=== PATIENT | male | born 1955 | race Caucasian/White ===

== ENCOUNTER 2019-07-23 10:23 | Day surgery (SDC) | payer MEDICARE ==
[~2019-07-23 10:23] MED LIST: ALBU90OI INH; ALBUIS INH; Antivert25 MG PO; CEPH500 PO; FLUSAL5005 INH; GABA300 PO; GABA600 PO; HYDACE5 PO; LISI5 PO; MELO7.5 PO; MONT10T PO; MORP15ER PO; MS Contin15 MG PO; OXYC1TAB11; Prednisone20 MG PO; TAMS.4ER PO; TIOT18 INH; TUDORZA PRESS400 MCG INH
--- NOTE | 2019-07-23 13:24 | NUR ---
ASSUMED CARE OF PT FOR RN (SUZI). PT IS DOING WELL WANTING TO GO EARLY. RN CALLED BROOKS IN RADIOLOGY SHE STATED PT CAN GO HOME. VSS. BANDAIND TO LOWER BACK ON [facility]. Discharge instructions reviewed with patient. Patient verbalizes understanding. Copy given to patient to take home. PT HAS NO QUESTIONS OR CONCERNS. Patient States Post-Procedure ride home has been arranged. PT WALKED OUT BROTHER IS PT RIDE HOME.
== END 2019-07-23 23:16 | disposition home or self-care (01) ==
LOC: RAD 10:23
DX: M50.11 Cervical disc disorder with radiculopathy, high cervical region (principal); M48.02 Spinal stenosis, cervical region; M43.12 Spondylolisthesis, cervical region; M65.232 Calcific tendinitis, left forearm; M96.1 Postlaminectomy syndrome, not elsewhere classified; Z98.1 Arthrodesis status
CPT/HCPCS: 62302; 72126; Q9966

== ENCOUNTER → 2019-10-01 | Outpatient (CLI) | payer MEDICARE ==
[2019-10-01 20:09] LABS: Anion Gap 6 mmol/L (6-16); Blood Urea Nitrogen 8 mg/dL (8-24); Bun/Creatinine Ratio 9.5 (12.0-20.0); CO2, Blood 28 mmol/L (21-32); Calcium, Blood 8.8 mg/dL (8.5-10.1); Chloride, Blood 103 mmol/L (98-108); Creatinine, Blood 0.84 mg/dL (0.60-1.20); Glomerular Filtration Rate >60 (60-); Glucose, Blood 113 mg/dL (70-99); Potassium, Blood 3.7 mmol/L (3.5-5.5); Sodium, Blood 137 mmol/L (136-145)
== END | disposition home or self-care (01) ==
LOC: LAB 19:22 → LAB SHORT 19:22
PROVIDERS: Physician Assistant
DX: E87.1 Hypo-osmolality and hyponatremia (principal)
CPT/HCPCS: 36415; 80048

== ENCOUNTER 2020-02-08 10:54 | Inpatient (IN) | payer OTHER ==
[~2020-02-08] VITALS: Ht 172.7 cm; Wt 68.0 kg
[~2020-02-08 10:54] MED LIST changes: -FLUSAL5005 INH; -MONT10T PO; -OXYC1TAB11
[2020-02-08 11:27] LABS: BASOPHILS ABSOLUTE AUTO 0.06 K/mm3 (0.00-0.23); BASOPHILS PERCENT AUTO 0 % (0-2); EOSINOPHILS ABSOLUTE AUTO 0.01 K/mm3 (0.00-0.68); EOSINOPHILS PERCENT AUTO 0 % (0-6); Hematocrit 47.4 % (37.0-53.0); Hemoglobin 15.8 g/dL (13.5-17.5); IMMATURE GRAN ABSOLUTE AUTO 0.42 K/mm3 (0.00-0.10); IMMATURE GRAN PERCENT AUTO 2 % (0-1); LYMPHOCYTES PERCENT AUTO 3 % (21-46); MONOCYTES ABSOLUTE AUTO 1.78 K/mm3 (0.16-1.47); MONOCYTES PERCENT AUTO 8 % (4-13); Mean Corpuscular HGB 29.7 pg (26.0-34.0); Mean Corpuscular HGB Conc 33.3 g/dL (31.5-36.5); Mean Corpuscular Volume 89 fL (80-100); Mean Platelet Volume 9.7 fL (9.1-12.4); NEUTROPHILS ABSOLUTE AUTO 18.14 K/mm3 (1.96-9.15); NEUTROPHILS PERCENT AUTO 86 % (41-73); Platelet Count 194 K/mm3 (150-400); RDW Coefficient Variation 13.6 % (11.7-14.2); RDW Standard Deviation 44.1 fL (35.1-46.3); Red Blood Cell Count 5.32 M/mm3 (4.30-5.90); White Blood Cell Count 21.11 K/mm3 (4.00-11.30)
[2020-02-08 11:42] LABS: Alanine Aminotransfer (ALT/SGP 17 U/L (12-78); Albumin, Blood 3.5 g/dL (3.4-5.0); Albumin/Globulin Ratio 0.9 (0.8-1.8); Alk Phos 81 U/L (50-136); Anion Gap 8 mmol/L (6-16); Aspartate Aminotrans (AST/SGOT 18 U/L (12-37); Bilirubin, Total 2.1 mg/dL (0.1-1.0); Blood Urea Nitrogen 16 mg/dL (8-24); Bun/Creatinine Ratio 18.1 (12.0-20.0); CO2, Blood 27 mmol/L (21-32); Chloride, Blood 99 mmol/L (98-108); Creatinine, Blood 0.89 mg/dL (0.60-1.20); Glomerular Filtration Rate >60 (60-); Glucose, Blood 103 mg/dL (70-99); Potassium, Blood 3.8 mmol/L (3.5-5.5); Sodium, Blood 134 mmol/L (136-145); Total Protein, Blood 7.5 g/dL (6.4-8.2); Troponin I <0.015 ng/mL (0.000-0.040)
[2020-02-08] MEDS ORDERED: MONT10T PO (13:42)
[2020-02-08] MEDS ORDERED: FLUT1DIS2 INH (13:42)
[2020-02-08] MEDS ORDERED: Ventolin/Prove6.7 GM INH (13:43)
[2020-02-08] MEDS ORDERED: Hydrocodone-Ap1 EA20 PO (13:44)
[2020-02-08 16:20] LABS: Adenovirus Not Detected (NOT DETECT); Bordetella pertussis Not Detected (NOT DETECT); Chlamydophila pneumoniae Not Detected (NOT DETECT); Coronavirus 229E Not Detected (NOT DETECT); Coronavirus HKU1 Not Detected (NOT DETECT); Coronavirus NL63 Not Detected (NOT DETECT); Coronavirus OC43 Not Detected (NOT DETECT); Human Metapneumovirus Not Detected (NOT DETECT); Human Rhinovirus/Enterovirus Not Detected (NOT DETECT); Influenza A/2009-H1 Not Detected (NOT DETECT); Influenza A/H1 Not Detected (NOT DETECT); Influenza A/H3 Not Detected (NOT DETECT); Influenza B Not Detected (NOT DETECT); Mycoplasma pneumoniae Not Detected (NOT DETECT); Parainfluenza Virus 1 Not Detected (NOT DETECT); Parainfluenza Virus 2 Not Detected (NOT DETECT); Parainfluenza Virus 3 Not Detected (NOT DETECT); Parainfluenza Virus 4 Not Detected (NOT DETECT); Respiratory Syncytial Virus Not Detected (NOT DETECT)
--- NOTE | 2020-02-08 18:31 | NUR ---
SHIFT SUMMARY PT A&OX4, VSS, DENIES FEVER, SOB, CP, PTAEL. EDU PT TO TCDB. REPORTS SLIGHT NAUSEA, REFUSES NAUSEA MEDICATION. PAIN MANAGED PER CHRONIC SCHEDULE OF 5 MG NORCO. URINAL AT BEDSIDE. CALL LIGHT EDU PROVIDED. WILL REPORT TO WINNIE LOPEZ RN.
--- NOTE | 2020-02-08 20:47 | NUR ---
URINE SPECIMEN OBTAINED AND SENT PER PREVIOUS ER ORDER, RESULTS PENDING.
[2020-02-08 20:51] LABS: Source, Urine Clean Catch
[2020-02-08 20:54] LABS: Bilirubin, Urine Neg (Neg); Blood, Urine 2+ (Neg); Glucose Qualitative, Urine Neg (Neg); Ketones, Urine 1+ (Neg); Leukocyte Esterase, Urine 1+ (Neg); Nitrite, Urine Neg (Neg); Protein, Urine 2+ (Neg); Urobilinogen, Urine NORM (Normal)
[2020-02-08 21:02] LABS: Appearance, Urine Clear (Clear); Bacteria Mod /hpf; Color, Urine Amber (P-Yellow); Hyaline Casts 0-2 /lpf (0-2); Mucus Light (0-Heavy); Red Blood Cells, Urine 0-2 /hpf (0-2); Squamous Epithelial Cells Few /hpf (Few)
--- NOTE | 2020-02-09 03:41 | NUR ---
SUMMARY: A/OX4, INDEPENDENT IN ROOM AND CALLS APPROPRIATELY FOR ASSISTANCE. HE REMAINS IN ISO FOR R/O COVID. HE'S BEEN W/O S/S RESP DISTRESS AND NO COUGH OBSERVED THIS SHIFT. RESPS E/U ON 1.5L O2 AND LS CLEAR, DIM IN BASES. RT PROVIDED BX TX'S PER EMAR. ORAL ZITHROMAX AND IV ROCEPHIN BEING RECEIVED FOR PNM. HE REPORTS CHRONIC BACK PAIN AND PATEL W/NORCO PROVIDED PRN FOR GOOD EFFECT. URINE SPECIMEN OBTAINED AND SENT, CX PENDING. PT DENIES FEVER/CHILLS AND ALL OTHER COMPLAINTS THIS SHIFT. VSS/AFEBRILE. WCTM AND REPORT TO DAY RN.
[2020-02-09 05:08] LABS: BASOPHILS ABSOLUTE AUTO 0.05 K/mm3 (0.00-0.23); BASOPHILS PERCENT AUTO 0 % (0-2); EOSINOPHILS ABSOLUTE AUTO 0.15 K/mm3 (0.00-0.68); EOSINOPHILS PERCENT AUTO 1 % (0-6); Hematocrit 38.6 % (37.0-53.0); IMMATURE GRAN ABSOLUTE AUTO 0.15 K/mm3 (0.00-0.10); IMMATURE GRAN PERCENT AUTO 1 % (0-1); LYMPHOCYTES ABSOLUTE AUTO 1.22 K/mm3 (0.84-5.20); LYMPHOCYTES PERCENT AUTO 9 % (21-46); MONOCYTES ABSOLUTE AUTO 1.01 K/mm3 (0.16-1.47); MONOCYTES PERCENT AUTO 7 % (4-13); Mean Corpuscular HGB 29.8 pg (26.0-34.0); Mean Corpuscular HGB Conc 33.7 g/dL (31.5-36.5); Mean Corpuscular Volume 89 fL (80-100); NEUTROPHILS ABSOLUTE AUTO 11.09 K/mm3 (1.96-9.15); NEUTROPHILS PERCENT AUTO 81 % (41-73); Platelet Count 180 K/mm3 (150-400); RDW Coefficient Variation 13.5 % (11.7-14.2); RDW Standard Deviation 43.9 fL (35.1-46.3); Red Blood Cell Count 4.36 M/mm3 (4.30-5.90); White Blood Cell Count 13.67 K/mm3 (4.00-11.30)
[2020-02-09 05:36] LABS: Anion Gap 7 mmol/L (6-16); Blood Urea Nitrogen 18 mg/dL (8-24); Bun/Creatinine Ratio 20.8 (12.0-20.0); CO2, Blood 30 mmol/L (21-32); Calcium, Blood 8.7 mg/dL (8.5-10.1); Chloride, Blood 99 mmol/L (98-108); Creatinine, Blood 0.87 mg/dL (0.60-1.20); Glomerular Filtration Rate >60 (60-); Glucose, Blood 97 mg/dL (70-99); Potassium, Blood 3.7 mmol/L (3.5-5.5); Sodium, Blood 136 mmol/L (136-145)
--- NOTE | 2020-02-09 12:40 | NUR ---
SPOKE WITH DAUGHTER WITH THE PT'S PERMISSION I SPOKE WITH HIS DAUGHTER ON THE PHONE SANTANA ARRIOLA [phone] SHE WOULD LIKE TO BE NOTIFIED OF ANY CHANGES AND WHEN HE IS DISCHARGED
--- NOTE | 2020-02-09 17:21 | NUR ---
SUMMARY PT SITTING UP IN BED WATCHING TV, PT HAS BEEN INDEPENDENT IN THE ROOM, IS PLEASANT AND COOPERATIVE WITH CARE, ON 2L NC MOST OF THE TIME, PT OCC TAKES IT OFF, DENIES ANY SOB AT THIS TIME, VSS, NO ACUTE CHANGES, WILL CONTINUE TO MONITOR
[2020-02-10 05:07] LABS: BASOPHILS ABSOLUTE AUTO 0.03 K/mm3 (0.00-0.23); BASOPHILS PERCENT AUTO 0 % (0-2); EOSINOPHILS ABSOLUTE AUTO 0.14 K/mm3 (0.00-0.68); EOSINOPHILS PERCENT AUTO 1 % (0-6); Hematocrit 38.7 % (37.0-53.0); IMMATURE GRAN ABSOLUTE AUTO 0.07 K/mm3 (0.00-0.10); IMMATURE GRAN PERCENT AUTO 1 % (0-1); LYMPHOCYTES ABSOLUTE AUTO 0.91 K/mm3 (0.84-5.20); LYMPHOCYTES PERCENT AUTO 9 % (21-46); MONOCYTES ABSOLUTE AUTO 0.81 K/mm3 (0.16-1.47); MONOCYTES PERCENT AUTO 8 % (4-13); Mean Corpuscular HGB 30.1 pg (26.0-34.0); Mean Corpuscular HGB Conc 33.6 g/dL (31.5-36.5); Mean Corpuscular Volume 90 fL (80-100); Mean Platelet Volume 10.3 fL (9.1-12.4); NEUTROPHILS ABSOLUTE AUTO 7.83 K/mm3 (1.96-9.15); NEUTROPHILS PERCENT AUTO 80 % (41-73); Platelet Count 207 K/mm3 (150-400); RDW Coefficient Variation 13.4 % (11.7-14.2); RDW Standard Deviation 44.6 fL (35.1-46.3); Red Blood Cell Count 4.32 M/mm3 (4.30-5.90); White Blood Cell Count 9.79 K/mm3 (4.00-11.30)
--- NOTE | 2020-02-10 06:03 | NUR ---
SUMMARY: A/OX4, INDEPENDENT IN ROOM AND SPECIFIES NEEDS. HE DENIES SOB OR DYSPNEA AND TOLERATED RA MOST OF NOCTE BUT PLACED SELF ON 1-2L O2 AD KAREN FOR COMFORT. LS ARE CLEAR AND DIM IN BASES W/RESPS E/U. HE OCCASIONALLY HAS A MOIST PRODUCTIVE COUGH W/LINDA SPUTUM OBSERVED. HE REMAINS IN ISO FOR R/O COVID W/RESULTS PENDING. NORCO WAS RECEIVED PRN FOR TOLERABLE CONTROL OF CHRONIC L.ARM AND BACK PAIN BUT PT ALSO REPORTS NAGGING PATEL. HE REMAINS IN ISO FOR R/O COVID W/RESULTS PENDING. NO ACUTE CHANGES, VSS/AFEBRILE. WCTM AND REPORT TO DAY RN.
[2020-02-10] MEDS ORDERED: DULO60 PO (09:47)
[2020-02-10] MEDS ORDERED: TAMS.4ER PO (09:48)
[2020-02-10] MEDS ORDERED: FINA5 PO (09:48)
--- NOTE | 2020-02-10 18:12 | NUR ---
SHIFT SUMMARY PATIENT TOLERATING ROOM AIR, BIBASILAR LUNG SOUNDS DIMINISHED, REPORTS SLIGHT BLANCHARD. SHOWERED TODAY. REMAINS IN ISOLATION FOR R/O COVID-19. TOLERATING ALL MEALS. MEDICATED WITH NORCO PRN FOR CHRONIC PAIN IN BACK AND LEFT ARM. UPDATED DR. GONZALEZ TODAY WITH THE PATIENT'S STATUS.
[2020-02-11 05:10] LABS: BASOPHILS ABSOLUTE AUTO 0.06 K/mm3 (0.00-0.23); BASOPHILS PERCENT AUTO 1 % (0-2); EOSINOPHILS ABSOLUTE AUTO 0.29 K/mm3 (0.00-0.68); EOSINOPHILS PERCENT AUTO 3 % (0-6); Hemoglobin 14.9 g/dL (13.5-17.5); IMMATURE GRAN ABSOLUTE AUTO 0.09 K/mm3 (0.00-0.10); IMMATURE GRAN PERCENT AUTO 1 % (0-1); LYMPHOCYTES ABSOLUTE AUTO 1.66 K/mm3 (0.84-5.20); LYMPHOCYTES PERCENT AUTO 15 % (21-46); MONOCYTES ABSOLUTE AUTO 1.74 K/mm3 (0.16-1.47); MONOCYTES PERCENT AUTO 16 % (4-13); Mean Corpuscular HGB 29.6 pg (26.0-34.0); Mean Corpuscular HGB Conc 33.1 g/dL (31.5-36.5); Mean Corpuscular Volume 90 fL (80-100); Mean Platelet Volume 10.6 fL (9.1-12.4); NEUTROPHILS ABSOLUTE AUTO 7.39 K/mm3 (1.96-9.15); NEUTROPHILS PERCENT AUTO 66 % (41-73); Platelet Count 180 K/mm3 (150-400); RDW Coefficient Variation 13.7 % (11.7-14.2); RDW Standard Deviation 45.2 fL (35.1-46.3); Red Blood Cell Count 5.03 M/mm3 (4.30-5.90); White Blood Cell Count 11.23 K/mm3 (4.00-11.30)
--- NOTE | 2020-02-11 06:20 | NUR ---
SHIFT SUMMARY PATIENT ALERT AND ORIENTED. IV IN LEFT AC REMOVED DUE TO IT LEAKING. 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 MOISÉS YANEZ RN INSERTED A NEW IV INTO HIS RIGHT FOREARM AFTER THIS NURSE WAS UNSUCCESSFUL AFTER TWO ATTEMPTS AT INSERTING A NEW IV. BED IN LOWEST POSITION WITH WHEELS LOCKED. CALL LIGHT WITHIN REACH. REPORT GIVEN TO ONCAZUCENA RN.
[2020-02-11] MEDS ORDERED: CIPR500 PO (11:38)
[2020-02-11] MEDS ORDERED: GUAI600T33 PO (11:38)
[2020-02-11] MEDS ORDERED: Vsl#3 Capsule1 EACH PO (11:39)
--- NOTE | 2020-02-11 12:27 | NUR ---
DISCHARGE SUMMARY- PT ALERT, ORIENTED AND INDEPENDENT. PT WAS GIVEN VERBAL AND WRITTEN DISCHARGE INSTRUCTIONS AND ACKNOWLEDGED UNDERSTANDING OF THEM. PT DAUGHTER WAS CONTACTED AND UPDATED PER PT REQUEST. IV DC'D PRIOR TO DISCHARGE. PT MEDS FAXED TO [facility] PER HIS REQUEST; CALLED TO VERIFY RECIEPT OF FAX PER PT DAUGHTER REQUEST, THEY HAVE THE ORDERS AND ARE "WORKING ON THEM NEXT". PT WAS ESCORTED OUT VIA WC BY THE RN MASK IN PLACE. NO S&S OF DISTRESS AT THE TIME OF DISCHARGE.
== END 2020-02-11 12:10 | disposition home or self-care (01) | DRG 179 ==
LOC: ER 10:54 → MEDS 16:18
PROVIDERS: Emergency Medicine; Internal Medicine; ADMIT Internal Medicine
DX: J15.212 Pneumonia due to Methicillin resistant Staphylococcus aureus (principal); R09.02 Hypoxemia; J44.9 Chronic obstructive pulmonary disease, unspecified; F32.9 Major depressive disorder, single episode, unspecified; G40.909 Epilepsy, unspecified, not intractable, without status epilepticus; G62.9 Polyneuropathy, unspecified; I10 Essential (primary) hypertension; Z87.891 Personal history of nicotine dependence; R91.1 Solitary pulmonary nodule; M54.9 Dorsalgia, unspecified; N40.0 Benign prostatic hyperplasia without lower urinary tract symptoms; G89.29 Other chronic pain; G25.81 Restless legs syndrome
CPT/HCPCS: 0099U; 36415; 71045; 71250; 80048; 80053; 81001; 83605; 84145; 84484; 85025; 87040; 87070; 87077; 87086; 87186; 87205; 93005; 93010; 94640; 94760; 96365; 99285-25; A9270-GY; J0696; J0744; J1650; J7050; U0002

== ENCOUNTER 2020-02-14 00:44 | Inpatient (IN) | payer OTHER ==
[~2020-02-14] VITALS: Ht 172.7 cm; Wt 68.0 kg
[~2020-02-14 00:44] MED LIST changes: +CIPR500 PO; +DULO60 PO; +FINA5 PO; +FLUT1DIS2 INH; +GUAI600T33 PO; +Hydrocodone-Ap1 EA20 PO; +MONT10T PO; +Ventolin/Prove6.7 GM INH; +Vsl#3 Capsule1 EACH PO
[2020-02-14 01:23] LABS: BASOPHILS ABSOLUTE AUTO 0.07 K/mm3 (0.00-0.23); BASOPHILS PERCENT AUTO 1 % (0-2); EOSINOPHILS ABSOLUTE AUTO 0.28 K/mm3 (0.00-0.68); EOSINOPHILS PERCENT AUTO 3 % (0-6); Hematocrit 43.5 % (37.0-53.0); Hemoglobin 14.7 g/dL (13.5-17.5); IMMATURE GRAN ABSOLUTE AUTO 0.35 K/mm3 (0.00-0.10); IMMATURE GRAN PERCENT AUTO 3 % (0-1); LYMPHOCYTES ABSOLUTE AUTO 0.93 K/mm3 (0.84-5.20); LYMPHOCYTES PERCENT AUTO 9 % (21-46); MONOCYTES ABSOLUTE AUTO 1.16 K/mm3 (0.16-1.47); MONOCYTES PERCENT AUTO 11 % (4-13); Mean Corpuscular HGB 30.1 pg (26.0-34.0); Mean Corpuscular HGB Conc 33.8 g/dL (31.5-36.5); Mean Corpuscular Volume 89 fL (80-100); Mean Platelet Volume 9.7 fL (9.1-12.4); NEUTROPHILS ABSOLUTE AUTO 8.19 K/mm3 (1.96-9.15); NEUTROPHILS PERCENT AUTO 75 % (41-73); Platelet Count 383 K/mm3 (150-400); RDW Standard Deviation 42.6 fL (35.1-46.3); Red Blood Cell Count 4.89 M/mm3 (4.30-5.90); White Blood Cell Count 10.98 K/mm3 (4.00-11.30)
[2020-02-14 01:41] LABS: Alanine Aminotransfer (ALT/SGP 48 U/L (12-78); Albumin, Blood 3.2 g/dL (3.4-5.0); Albumin/Globulin Ratio 0.7 (0.8-1.8); Alk Phos 78 U/L (50-136); Anion Gap 7 mmol/L (6-16); Aspartate Aminotrans (AST/SGOT 36 U/L (12-37); Bilirubin, Total 0.5 mg/dL (0.1-1.0); Blood Urea Nitrogen 7 mg/dL (8-24); Bun/Creatinine Ratio 9.4 (12.0-20.0); CO2, Blood 30 mmol/L (21-32); Calcium, Blood 9.2 mg/dL (8.5-10.1); Chloride, Blood 96 mmol/L (98-108); Creatinine, Blood 0.75 mg/dL (0.60-1.20); Globulin, Blood 4.5 g/dL (2.2-4.0); Glomerular Filtration Rate >60 (60-); Glucose, Blood 109 mg/dL (70-99); Potassium, Blood 3.7 mmol/L (3.5-5.5); Sodium, Blood 133 mmol/L (136-145); Total Protein, Blood 7.7 g/dL (6.4-8.2); Troponin I <0.015 ng/mL (0.000-0.040)
--- NOTE | 2020-02-14 04:53 | NUR ---
ADMISSION: PATIENT IS A&OX4, RECIEVED FROM ER VIA STRETCHER. PATIENT IS PAINFULL IN RIGHT CHEST. BP IS ELEVATED 02 STAT IS 93% ON 3L. TORADAL IS GIVEN FOR PAIN, TELEMETRY IS PLACED, NSR RATE OF 78. PATIENT IS ORIENTED TO ROOM AND CALL PINK. INSTRUCATED CALL FOR ASSIST OOB TO PREVENT FALLS. PATIENT IS IN DROPPLET PRECAUTIONS FOR MRSA IN THE SPUTUM.
--- NOTE | 2020-02-14 07:38 | NUR ---
SHIFT SUMMARY: PATIENT HAS GOOD EFFECT FROM TORADOL AND IS MUCH MORE RELAXED. TELEMETRY SHOWS NSR WITH RATE OF 78 02 IS AT 3L NC. PATIENT IS INSTRUCTED TO CALL FOR ASSISTANCE OOB TH FIRST TIME. PATIENT IS DUE TO VOID.
--- NOTE | 2020-02-14 12:05 | NUR ---
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 H/R REG, NO MURMER NOTED. IS DISTANT. PER TELE NSR AT 67. LUNGS CLEAR, EXCEPT LOW RIGHT HAS LIGHT CRACKLES. ON 3L O2. RESP EASY, UNLABORED. SOB WITH EXERTION TO BATHROOM. BT X4 LAST BMYEST. VOIDS URINAL AND ABOVE, SOB TO BATHROOM. SBA. BED IN LOW POSITION, CALL LITE IN [facility], CALLS APPROP
--- NOTE | 2020-02-14 17:39 | NUR ---
PT PLEASANT TODAY. DID MAKE IT TO BATHROOM WITH SOME RESTING. PT STATES OVERALL IMPROVE MEMT. CONTINUE TO MONITOR. BED IN LOW POSITION, CALL LITE IN REACH, CALLS APPROP
[2020-02-15 05:28] LABS: Hematocrit 38.1 % (37.0-53.0); Hemoglobin 12.8 g/dL (13.5-17.5); Mean Corpuscular HGB 29.6 pg (26.0-34.0); Mean Corpuscular HGB Conc 33.6 g/dL (31.5-36.5); Mean Corpuscular Volume 88 fL (80-100); Mean Platelet Volume 9.7 fL (9.1-12.4); Platelet Count 404 K/mm3 (150-400); RDW Coefficient Variation 12.8 % (11.7-14.2); RDW Standard Deviation 41.4 fL (35.1-46.3); Red Blood Cell Count 4.32 M/mm3 (4.30-5.90); White Blood Cell Count 9.42 K/mm3 (4.00-11.30)
[2020-02-15 06:03] LABS: Anion Gap 7 mmol/L (6-16); Blood Urea Nitrogen 14 mg/dL (8-24); Bun/Creatinine Ratio 19.5 (12.0-20.0); CO2, Blood 28 mmol/L (21-32); Calcium, Blood 8.9 mg/dL (8.5-10.1); Chloride, Blood 98 mmol/L (98-108); Creatinine, Blood 0.72 mg/dL (0.60-1.20); Glomerular Filtration Rate >60 (60-); Glucose, Blood 115 mg/dL (70-99); Potassium, Blood 4.4 mmol/L (3.5-5.5); Sodium, Blood 133 mmol/L (136-145)
--- NOTE | 2020-02-15 07:19 | NUR ---
SHIFT SUMMARY: PATIENT IS A&OX4, SOB WITH ACTIVITY, 88% ON RA AND 93% ON 3L. RECENTLY QUIT SMOKING THIS PASSED WEEK DUE TO PNA. PAIN IN R CHEST HAS IMPROVED, CHRONIC BACK PAIN IS MAIN SOURCE OF PAIN AT THIS TIME. NORCO IS GIVEN WITH GOOD EFFECT. PATIENT REMAINS IN DROPLET/CONTACT ISOLSTION FOR MRSA IN THE SPUTUM.
--- NOTE | 2020-02-15 07:59 | NUR ---
RECEIVED REPORT FROM NOC NURSE, A+O, BED in low position, o2 via 3L via nc, iv infusing abx, call light in reach, ls dim, perrl, strong pulse, cattle care worker and profusion, full rom all limbs, bt+4q, soft nontender, will continue to monitor and treat
[2020-02-15 17:48] LABS: Vancomycin, Trough 16.1 ug/mL (5.0-10.0)
--- NOTE | 2020-02-15 18:42 | NUR ---
a+o, still concerned about area in lung as seen on xray, encouraged him to discuss it with mario ruffin infusing with no s/sx of infiltration or infection, adjusting to new swallow percautions, will continue to monitor and treat until share bsr with noc shift
--- NOTE | 2020-02-16 07:19 | NUR ---
02/16/20 0600 SLEPT ON AND OFF. MEDICATED FOR CHRONIC BACK,CHEST AND LT. ARM DISCOMFORT. VITLAS STABLE. VOIDING WELL. O2 AT 3LPM VIA N/C LAST NIGHT. UNEVENTFUL NIGHT.
--- NOTE | 2020-02-16 17:00 | NUR ---
PT IS AOX4 AND COOPERATIVE OF CARE. PT IS A STAND BY ASSIST TO RESTROOM, BUT USES URINAL MOST OF THE TIME. DR HAS REQUESTED PT BE TITRATED DOWN WITH O2. PT IS ON 2 L AT THIS TIME LOW 90s. PT CALL APPROPRIATELY WILL CONTINUE TO MONITOR.
--- NOTE | 2020-02-17 04:38 | NUR ---
SHIFT SUMMARY PATIENT HAD NO ACUTE CHANGES OBSERVED. AXO X3 AND SBA TO BR. DENIES SOB AND NV. REPORTED BACK PAIN AND NORCO GIVEN PER EMAR. USES URINAL AT BEDSIDE. TAKES MEDICATION X ONE EACH WITH APPLE SAUCE. PIV REMAINS INTACT. HIGH VOLTAGE ELECTRICIAN REPORTS NSR 70. ON 2L O2 NC. IV ABXS INFUSED. CALL LIGHT IN REACH. BED IN LOWEST POSITION. WILL CONTINUE TO MONITOR UNTIL DAY SHIFT NURSE ASSUMES CARE.
[2020-02-17 05:53] LABS: Creatinine, Blood 0.76 mg/dL (0.60-1.20)
[2020-02-17 05:57] LABS: Vancomycin, Trough 24.4 ug/mL (5.0-10.0)
--- NOTE | 2020-02-17 17:44 | NUR ---
PT AOX4 AND COOPERATIVE OF CARE. PT WORKED WITH PHYSICAL THERAPY TODAY AND DID WELL ON 2 L. PT HAS BEEN TITRATED TO 1L AROUND 1700 DOCTOR WANTS PT TO BE ABLE TO GO HOME WITHOUT O2. PT HAS CHRONIC BACK PAIN AND WAS TREATED PER EMAR. PT WAS NOT HOWEVER WOKE UP FOR PAIN MEDCATION FOR AND EARLIER DOSE. THIS MILK COLLECTOR WAITED UNTIL HE WAS AWAKE THIS MORING TO GIVE HIM PAIN MEDICATION. PT HAD STATED HIS PAIN WAS A 5 AND WAS GIVEN PAIN MEDICATION IMMEDIATELY. PT REQUESTED NEXT DOSE AN HOUR EARLY AND WAS ANGRY WHEN HE WAS THEN GIVEN MEDICATION WHEN IT WAS DUE STATING IT IS BEING GIVEN LATE OR PEOPLE LEAVE IT ON THE COMPUTER COUNTER AND FORGET TO GIVE IT TO HIM. THIS MILK COLLECTOR EXPLAINED MEDICATION CAN ONLY BE GIVEN WHEN DUE AND AN ORDER IS WRITTEN. PT STATED HE IS TIRED OF BEING HERE AND WILL BE READY TO GO HOME. NO DISTRESS NOTED AT THIS TIME, WILL CONTINUE TO MONITOR.
[2020-02-18 04:48] LABS: Anion Gap 4 mmol/L (6-16); Blood Urea Nitrogen 10 mg/dL (8-24); Bun/Creatinine Ratio 10.9 (12.0-20.0); CO2, Blood 32 mmol/L (21-32); Calcium, Blood 9.2 mg/dL (8.5-10.1); Chloride, Blood 100 mmol/L (98-108); Creatinine, Blood 0.92 mg/dL (0.60-1.20); Glomerular Filtration Rate >60 (60-); Glucose, Blood 85 mg/dL (70-99); Potassium, Blood 4.5 mmol/L (3.5-5.5); Sodium, Blood 136 mmol/L (136-145)
--- NOTE | 2020-02-18 07:29 | NUR ---
SHIFT SUMMARY: VSS. TEMP 99.4. LS DIM, OCC. COUGH PRODUCING SMALL AMT OF WHITE SPUTUM. PT STATES THAT OVERALL HE FEELS BETTER. 02 SAT 92% ON 1L VIA NC. UNABLE TO FURTHER TITRATE 02 DOWN D/T SATS RUNNING LOW 90S. DENIES SOB AT REST. PLEASANT AND COOPERATIVE. MED FOR BACK PAIN Q6HRS. NO ACUTE CHANGES. WILL CONT TO MONITOR.
--- NOTE | 2020-02-18 18:13 | NUR ---
Provided theraputic listeing and gentle children's counselor to Mr. Montalvo. He is pleasant and talkative. He is non-druze, but appeared to enjoy companinship and encouragement. He admits he needs to accept the aging process and neccessary life-style changes. He responded well to children's counselor regarding acceptance with maggi. I will remain available.
--- NOTE | 2020-02-18 18:40 | NUR ---
SHIFT SUMMARY PATIENT WEANED TO 1LPM NC TODAY, USING INCENTIVE SPIROMETER. ENCOURAGED TO GET OOB TODAY TO PROMOTE HEALING. REMINDED PATIENT OF DYSPHAGIA PRECAUTIONS, TO MINIMIZE DISTRATIONS POSSIBLE WHILE EATING. CHRONIC BACK PAIN MANAGED BY PRN OLIVA ESPINOZA. COUGH NONPRODUCTIVE TODAY. PATIENT EXPRESSES HOPE TO GO HOME SOON. GOAL IS TO WEAN OFF OF OXYGEN.
[2020-02-19 04:20] LABS: BASOPHILS ABSOLUTE AUTO 0.08 K/mm3 (0.00-0.23); BASOPHILS PERCENT AUTO 1 % (0-2); EOSINOPHILS ABSOLUTE AUTO 0.29 K/mm3 (0.00-0.68); EOSINOPHILS PERCENT AUTO 2 % (0-6); Hematocrit 35.4 % (37.0-53.0); Hemoglobin 11.8 g/dL (13.5-17.5); IMMATURE GRAN ABSOLUTE AUTO 0.12 K/mm3 (0.00-0.10); IMMATURE GRAN PERCENT AUTO 1 % (0-1); LYMPHOCYTES ABSOLUTE AUTO 1.09 K/mm3 (0.84-5.20); LYMPHOCYTES PERCENT AUTO 9 % (21-46); MONOCYTES PERCENT AUTO 8 % (4-13); Mean Corpuscular HGB 29.4 pg (26.0-34.0); Mean Corpuscular HGB Conc 33.3 g/dL (31.5-36.5); Mean Corpuscular Volume 88 fL (80-100); Mean Platelet Volume 9.1 fL (9.1-12.4); NEUTROPHILS ABSOLUTE AUTO 9.92 K/mm3 (1.96-9.15); NEUTROPHILS PERCENT AUTO 79 % (41-73); Platelet Count 442 K/mm3 (150-400); Red Blood Cell Count 4.02 M/mm3 (4.30-5.90)
--- NOTE | 2020-02-19 04:42 | NUR ---
SHIFT SUMMARY NO ACUTE CHANGES TO REPORT THIS SHIFT. PT HAS RESTED MOST OF THE NIGHT. PT REMAINS ON O2. PT DENIES SOB, PRODUCTIVE COUGH. AFEBRILE. PT HAS BEEN INDEPENDENT AND AMBULATORY IN THE ROOM. MEDICATED FOR PAIN X1 PER EMAR ORDERS. ASSESSMENT UNCHANGED. BED IN LOWEST POSITION, CALL LIGHT WITHIN REACH. WILL CONTINUE TO MONITOR AND REPORT TO ONCOMING RN.
[2020-02-19 04:48] LABS: Alanine Aminotransfer (ALT/SGP 32 U/L (12-78); Albumin, Blood 2.4 g/dL (3.4-5.0); Albumin/Globulin Ratio 0.6 (0.8-1.8); Alk Phos 61 U/L (50-136); Anion Gap 5 mmol/L (6-16); Aspartate Aminotrans (AST/SGOT 23 U/L (12-37); Bilirubin, Total 0.4 mg/dL (0.1-1.0); Blood Urea Nitrogen 13 mg/dL (8-24); Bun/Creatinine Ratio 14.2 (12.0-20.0); CO2, Blood 30 mmol/L (21-32); Calcium, Blood 8.4 mg/dL (8.5-10.1); Chloride, Blood 99 mmol/L (98-108); Creatinine, Blood 0.91 mg/dL (0.60-1.20); Globulin, Blood 3.7 g/dL (2.2-4.0); Glomerular Filtration Rate >60 (60-); Glucose, Blood 101 mg/dL (70-99); Potassium, Blood 4.3 mmol/L (3.5-5.5); Sodium, Blood 134 mmol/L (136-145); Total Protein, Blood 6.1 g/dL (6.4-8.2)
[2020-02-19] MEDS ORDERED: LINE600 PO (14:09)
--- NOTE | 2020-02-19 16:35 | NUR ---
SHIFT SUMMARY PATIENT DENIES PAIN, NAUSEA, AND SHORTNESS OF BREATH. PATIENT OXYGEN SATURATION ABOVE 94% ON ROOM AIR. HOME 02 EVAL COMPLETED. SUPPLEMENTAL OXYGEN NOT NEEDED. PATIENT AMBULATING INDEPENDENTLY IN ROOM W/FWW. PATIENT HAS DISCHARGE ORDER. PATIENT'S DAUGHTER TO COME PICK HIM UP AFTER WORK AROUND [id number] TODAY. PRESCRIPTIONS FAXED AND FOLLOW UP SCHEDULED. DISCHARGE MEDICATIONS AND INSTRUCTIONS EXPLAINED TO PATIENT. IV REMOVED WITHOUT DIFFICULTY. CALL LIGHT IN REACH.
--- NOTE | 2020-02-19 19:03 | NUR ---
PATIENT DISCHARGED PATIENT TRANSFERED TO PRIVATE VEHICLE VIA WHEELCHAIR.
== END 2020-02-19 18:37 | disposition home or self-care (01) | DRG 871 ==
LOC: ER 00:44 → MEDS 00:45 → ENPENDDIS 02-19 14:23 → MEDS 02-19 18:37
PROVIDERS: Emergency Medicine; Internal Medicine; ADMIT Family Medicine
DX: A41.02 Sepsis due to Methicillin resistant Staphylococcus aureus (principal); J15.212 Pneumonia due to Methicillin resistant Staphylococcus aureus; J96.01 Acute respiratory failure with hypoxia; E87.1 Hypo-osmolality and hyponatremia; J44.0 Chronic obstructive pulmonary disease with (acute) lower respiratory infection; I10 Essential (primary) hypertension; E86.0 Dehydration; N40.0 Benign prostatic hyperplasia without lower urinary tract symptoms; F32.9 Major depressive disorder, single episode, unspecified; G62.9 Polyneuropathy, unspecified; G25.81 Restless legs syndrome; Z87.891 Personal history of nicotine dependence
CPT/HCPCS: 36415; 71045; 80048; 80053; 80202; 82565; 83605; 84145; 84484; 85025; 85027; 87040; 92526; 92610; 93005; 93010; 94640; 94760; 94761; 96365; 96366; 96372; 96374; 96376; 97110; 97116; 97162; 97530; 99285-25; G0378; J0696; J1650; J1885; J3370; J7050; J7512

== ENCOUNTER → 2021-09-12 | Outpatient (CLI) | payer OTHER ==
[~2021-09-12] MED LIST changes: +LINE600 PO
[2021-09-12 20:27] LABS: Anion Gap 4 mmol/L (6-16); Blood Urea Nitrogen 7 mg/dL (8-24); Bun/Creatinine Ratio 9.5 (12.0-20.0); CO2, Blood 30 mmol/L (21-32); Calcium, Blood 9.1 mg/dL (8.5-10.1); Chloride, Blood 103 mmol/L (98-108); Creatinine, Blood 0.74 mg/dL (0.60-1.20); Glomerular Filtration Rate >60 (60-); Glucose, Blood 128 mg/dL (70-99); Potassium, Blood 4.1 mmol/L (3.5-5.5); Sodium, Blood 137 mmol/L (136-145)
== END | disposition home or self-care (01) ==
LOC: LAB SHORT 19:10
PROVIDERS: Physician Assistant
DX: R60.9 Edema, unspecified (principal)
CPT/HCPCS: 80048

== ENCOUNTER → 2023-09-02 | Outpatient (CLI) | payer OTHER ==
[2023-09-02 19:46] LABS: BASOPHILS ABSOLUTE AUTO 0.09 K/mm3 (0.00-0.23); BASOPHILS PERCENT AUTO 1 % (0-2); EOSINOPHILS ABSOLUTE AUTO 0.34 K/mm3 (0.00-0.68); EOSINOPHILS PERCENT AUTO 3 % (0-6); Hematocrit 46.5 % (37.0-53.0); Hemoglobin 15.7 g/dL (13.5-17.5); IMMATURE GRAN ABSOLUTE AUTO 0.05 K/mm3 (0.00-0.10); IMMATURE GRAN PERCENT AUTO 0 % (0-1); LYMPHOCYTES ABSOLUTE AUTO 1.96 K/mm3 (0.84-5.20); LYMPHOCYTES PERCENT AUTO 16 % (21-46); MONOCYTES ABSOLUTE AUTO 1.14 K/mm3 (0.16-1.47); MONOCYTES PERCENT AUTO 9 % (4-13); Mean Corpuscular HGB 30.7 pg (26.0-34.0); Mean Corpuscular HGB Conc 33.8 g/dL (31.5-36.5); Mean Corpuscular Volume 91 fL (80-100); Mean Platelet Volume 11.6 fL (9.1-12.4); NEUTROPHILS PERCENT AUTO 71 % (41-73); Platelet Count 229 K/mm3 (150-400); RDW Coefficient Variation 14.1 % (11.7-14.2); RDW Standard Deviation 46.8 fL (35.1-46.3); Red Blood Cell Count 5.11 M/mm3 (4.30-5.90); White Blood Cell Count 12.28 K/mm3 (4.00-11.30)
[2023-09-02 20:25] LABS: Albumin, Blood 3.8 g/dL (3.4-5.0); Bilirubin, Total 0.3 mg/dL (0.1-1.0); Bun/Creatinine Ratio 20.2 (12.0-20.0); Calcium, Blood 9.1 mg/dL (8.5-10.1); Creatinine, Blood 0.74 mg/dL (0.60-1.20); Globulin, Blood 3.7 g/dL (2.2-4.0); Thyroid Stimulating Hormone 2.2 uIU/mL (0.360-4.800); Total Protein, Blood 7.5 g/dL (6.4-8.2)
== END ==
LOC: LAB SHORT 18:21 → LAB 18:21
PROVIDERS: Physician Assistant
DX: R10.9 Unspecified abdominal pain (principal); Z79.899 Other long term (current) drug therapy
CPT/HCPCS: 80053; 83036; 83690; 84443; 85025

== ENCOUNTER → 2024-03-13 | Outpatient (CLI) | payer OTHER | END | disposition home or self-care (01) | LOC: LAB 15:12 → LAB SHORT 15:12 | DX: E78.2 Mixed hyperlipidemia (principal); R63.4 Abnormal weight loss ==

== ENCOUNTER → 2025-02-25 | Outpatient (CLI) | payer OTHER ==
[2025-02-25 15:59] LABS: BASOPHILS ABSOLUTE AUTO 0.07 K/mm3 (0.00-0.23); BASOPHILS PERCENT AUTO 1 % (0-2); EOSINOPHILS ABSOLUTE AUTO 0.38 K/mm3 (0.00-0.68); EOSINOPHILS PERCENT AUTO 6 % (0-6); Hematocrit 45.9 % (37.0-53.0); Hemoglobin 15.3 g/dL (13.5-17.5); IMMATURE GRAN ABSOLUTE AUTO 0.02 K/mm3 (0.00-0.10); IMMATURE GRAN PERCENT AUTO 0 % (0-1); LYMPHOCYTES ABSOLUTE AUTO 1.76 K/mm3 (0.84-5.20); LYMPHOCYTES PERCENT AUTO 26 % (21-46); MONOCYTES PERCENT AUTO 9 % (4-13); Mean Corpuscular HGB Conc 33.3 g/dL (31.5-36.5); Mean Corpuscular Volume 90 fL (80-100); Mean Platelet Volume 10.7 fL (9.1-12.4); NEUTROPHILS ABSOLUTE AUTO 4.08 K/mm3 (1.96-9.15); NEUTROPHILS PERCENT AUTO 59 % (41-73); Platelet Count 207 K/mm3 (150-400); White Blood Cell Count 6.91 K/mm3 (4.00-11.30)
[2025-02-25 20:22] LABS: Alanine Aminotransfer (ALT/SGP 21 U/L (12-78); Albumin, Blood 3.7 g/dL (3.4-5.0); Alk Phos 128 U/L (50-136); Anion Gap 9 mmol/L (3-11); Aspartate Aminotrans (AST/SGOT 20 U/L (12-37); Bilirubin, Total 0.6 mg/dL (0.1-1.0); Blood Urea Nitrogen 15 mg/dL (8-24); Bun/Creatinine Ratio 21.3 (12.0-20.0); CHOL/HDL RATIO 2.3; CO2, Blood 30 mmol/L (21-32); Calcium, Blood 8.9 mg/dL (8.5-10.1); Chloride, Blood 104 mmol/L (98-108); Cholesterol 130 mg/dL (50-200); Creatinine, Blood 0.71 mg/dL (0.60-1.20); Globulin, Blood 3.7 g/dL (2.2-4.0); Glomerular Filtration Rate 97 (60-); Glucose, Blood 89 mg/dL (70-99); HDL Cholesterol 56 mg/dL (>39); Low Density Lipoprotein Chol 57 mg/dL (0-110); Potassium, Blood 3.6 mmol/L (3.5-5.5); Sodium, Blood 139 mmol/L (136-145); Total Protein, Blood 7.4 g/dL (6.4-8.2); Triglycerides 86 mg/dL (30-160); Very Low Density Lipoprot Chol 17 mg/dL (6-32)
== END ==
LOC: LAB SHORT 15:21 → LAB 15:21
PROVIDERS: Physician Assistant
DX: Z51.81 Encounter for therapeutic drug level monitoring (principal); Z79.899 Other long term (current) drug therapy
CPT/HCPCS: 80053; 80061; 82306; 83036; 84443; 85025